=== PATIENT | female | born 1990 | race Caucasian/White ===

== ENCOUNTER 2017-10-30 19:49 | Inpatient (IN) | payer OTHER ==
[~2017-10-30] VITALS: Ht 165.1 cm; Wt 62.5 kg
[~2017-10-30 19:49] MED LIST: FAMOTIDINE; HYDROCODON-ACE1 EAC7 PO; KEFLEX500 MG PO; NORFLEX100 MG PO; PHENERGAN 25 MG25 M1 PO; PRENACARE TABL1 EACH PO; ZOFRAN4 MG PO
[2017-10-30 19:58] VITALS: BP 123/80
[2017-10-30 21:18] LABS: ABSOLUTE EOSINOPHILS 0.2 thou/uL (0.0-0.7); ABSOLUTE LYMPHOCYTES 3.3 thou/uL (0.8-5.3); ABSOLUTE MONOCYTES 0.4 thou/uL (0.0-1.2); ABSOLUTE NEUTROPHILS 4.7 thou/uL (1.6-8.1); BASOPHILS 0.5 %; EOSINOPHILS 2.2 %; HEMATOCRIT 41.6 % (37.0-47.0); LYMPHOCYTES 38.1 %; MCH 29.5 pg (26.0-34.0); MCHC 33.7 g/dL (28.0-37.0); MCV 87.5 fL (80.0-100.0); MPV 8.2 fl. (7.2-11.1); NUCLEATED RBCS 0 /100WBC; PLATELET COUNT* 273 thou/uL (150-400); POLYS 54.2 %; RBC 4.75 mil/uL (4.20-5.00); RDW-CV 12.7 % (10.5-14.5); WBC 8.7 thou/uL (4.0-11.0)
[2017-10-30 21:23] LABS: CALCIUM 8.7 mg/dL (8.5-10.1); CREATININE 0.8 mg/dL (0.6-1.3); POTASSIUM 3.7 mmol/L (3.5-5.1)
[2017-10-30 21:28] LABS: ALBUMIN 3.9 g/dL (3.4-5.0); TOTAL BILIRUBIN 0.4 mg/dL (<0.1-1.0); TOTAL PROTEIN 8.2 g/dL (6.4-8.2)
[2017-10-30 23:11] LABS: URINE BILIRUBIN NEGATIVE (Negative); URINE BLOOD 2+ (Negative); URINE CLARITY CLEAR; URINE COLOR YELLOW; URINE GLUCOSE-RANDOM NEGATIVE (Negative); URINE KETONES NEGATIVE (Negative); URINE LEUKOCYTES-REFLEX NEGATIVE (Negative); URINE NITRITE-REFLEX NEGATIVE (Negative); URINE PROTEIN NEGATIVE (Negative); URINE SPECIFIC GRAVITY 1.025 (1.005-1.030); URINE UROBILINOGEN 0.2 E.U./dl (0.2-1.0)
[2017-10-30 23:16] LABS: SQUAMOUS >10 Many /LPF (0-3)
[2017-10-30 23:17] LABS: BACTERIA-REFLEX 1-9 Few /HPF (None Seen); CASTS None Seen /LPF (None Seen); CRYSTALS None Seen /LPF (None Seen); MUCUS 0-3 Light strn/LPF (None Seen); URINE RBC 3-10 Few /HPF (0-2); URINE WBC-REFLEX 0-5 Rare /HPF (0-5)
[2017-10-30 23:18] LABS: AMP/METHAMP Negative (Negative); BARBITURATES Negative (Negative); BENZODIAZEPINES Negative (Negative); COCAINE Negative (Negative); METHADONE Negative (Negative); OPIATES Negative (Negative); PCP Negative (Negative); THC Negative (Negative)
[2017-10-31] VITALS (8 sets, daily range): BP systolic 76–100; BP diastolic 30–63
--- NOTE | 2017-10-31 15:10 | 2DMMODE ---
[place] [address] 2 D/M-MODE ECHOCARDIOGRAM Name: LILLIAN COLON Room: [address] IN [facility]#: [id number] Admission: 10/30/17 Attend Phys: Juan Luis Molina Discharge: 11/02/17 Date of : 86 Date of Service: 10/31/17 1510 Report #: [id number] THIS REPORT FOR: //name// APPROVED REPORT Study performed: 10/31/2017 10:37:50 EXAM: Comprehensive 2D, Doppler, and color-flow Echocardiogram Patient Location: In-Patient Room #: [place] Status: routine BSA: 1.69 HR: 70 bpm BP: 78/30 mmHg Rhythm: NSR Other Information Study Quality: Good Indications Syncope Seizures 2D Dimensions LVEF(%): 67.76 (>50%) IVSd: 8.98 (7-11mm) LVOT Diam: 20.06 (18-24mm) LVDd: 41.12 mm PWd: 8.63 (7-11mm) Ascending Ao: 31.81 (22-36mm) LVDs: 25.78 (25-40mm) Aortic Root: 29.73 mm Wheatley's LVEF: 67.76 % Volumes Left Atrial Volume (Systole) LA ESV Index: 18.60 mL/m2 Aortic Valve AoV Peak Travis.: 1.01 m/s AO Peak Gr.: 4.12 mmHg LVOT Max P.12 mmHg AO Mean Gr.: 2.26 mmHg LVOT Mean P.81 mmHg LVOT Max V: 1.01 m/s AO V2 VTI: 23.51 cm LVOT Mean V: 0.61 m/s FLORIN (VTI): 3.36 cm2 LVOT V1 VTI: 24.98 [place] [address] 2 D/M-MODE ECHOCARDIOGRAM Name: LILLIAN COLON Room: [address] [place] ..#: [id number] Admission: 10/30/17 Attend Phys: Juan Luis Molina Discharge: 11/02/17 Date of : 86 Date of Service: 10/31/17 1510 Report #: [id number] E/A Ratio: 2.12 MV Decel. Time: 205.12 ms MV E Max Travis.: 0.95 m/s MV PHT: 59.49 ms MVA (PHT): 3.70 cm2 TDI E/Lateral E': 6.79 E/Medial E': 5.59 Medial E' Travis.: 0.17 m/s Lateral E' Travis.: 0.14 m/s Pulmonary Valve PV Peak Travis.: 0.77 m/s PV Peak Gr.: 2.40 mmHg Left Ventricle The left ventricle is normal size. There is normal LV segmental wall motion. There is normal left ventricular wall thickness. Left ventricular systolic function is normal. The left ventricular ejection fraction is within the normal range. LVEF is 55-60%. LVEF is 60%. The left ventricular diastolic function is normal. Right Ventricle The right ventricle is normal size. The right ventricular systolic function is normal. Atria The left atrium size is normal. The right atrium size is normal. Aortic Valve The aortic valve is normal in structure. No aortic regurgitation is present. There is no aortic valvular stenosis. Mitral Valve The mitral valve is normal in structure. There is no mitral valve regurgitation noted. No evidence of mitral valve stenosis. Tricuspid Valve The tricuspid valve is normal in structure. Unable to assess PA pressure. Trace tricuspid regurgitation. Pulmonic Valve The pulmonary valve is normal in structure. There is no pulmonic [place] [address] 2 D/M-MODE ECHOCARDIOGRAM Name: LILLIAN COLON Room: [address] [place] .R.#: [id number] Admission: 10/30/17 Attend Phys: Juan Luis Molina Discharge: 11/02/17 Date of : 86 Date of Service: 10/31/17 1510 Report #: [id number] Great Vessels The aortic root is normal in size. IVC is normal in size and collapses with >50% inspiration Pericardium There is no pericardial effusion. <Conclusion> The left ventricle is normal size. There is normal left ventricular wall thickness. Left ventricular systolic function is normal. The left ventricular ejection fraction is within the normal range. LVEF is 60%. The left ventricular diastolic function is normal. The right ventricle is normal size. The left atrium size is normal. The aortic valve is normal in structure. The mitral valve is normal in structure. The tricuspid valve is normal in structure. IVC is normal in size and collapses with >50% inspiration There is normal LV segmental wall motion. <ELECTRONICALLY SIGNED> By: Collin Montero MD, FACC 10/31/171509 09 09 Collin Montero MD, FACC /INF
[2017-10-31 18:17] LABS: CSF CLARITY CLEAR; CSF COLOR COLORLESS; CSF RBC 5 /mm3; CSF WBC 0 /mm3 (0-10); VOLUME 11 ml
[2017-10-31 18:35] LABS: CSF GLUCOSE 55 mg/dl (40-70); CSF PROTEIN 31.9 mg/dl (15-45)
[2017-11-01 00:41] VITALS: BP 85/51
[2017-11-01 04:27] VITALS: BP 89/50
[2017-11-01 04:54] LABS: HEMATOCRIT 35.6 % (37.0-47.0); HEMOGLOBIN 12.2 gm/dL (12.0-15.0); MCHC 34.4 g/dL (28.0-37.0); MCV 87.2 fL (80.0-100.0); MPV 8.9 fl. (7.2-11.1); RBC 4.09 mil/uL (4.20-5.00); RDW-CV 12.8 % (10.5-14.5)
[2017-11-01 05:22] LABS: CALCIUM 8.1 mg/dL (8.5-10.1); CREATININE 0.8 mg/dL (0.6-1.3); MAGNESIUM 1.8 mg/dL (1.8-2.4); POTASSIUM 4.3 mmol/L (3.5-5.1)
[2017-11-01 08:00] VITALS: BP 91/53
[2017-11-01 13:12] VITALS: BP 94/55
[2017-11-01 16:39] VITALS: BP 77/42
[2017-11-01 20:05] VITALS: BP 99/59
[2017-11-02 00:08] VITALS: BP 100/53
[2017-11-02 04:39] LABS: HEMATOCRIT 36.3 % (37.0-47.0); HEMOGLOBIN 12.3 gm/dL (12.0-15.0); MCH 29.5 pg (26.0-34.0); MCHC 33.9 g/dL (28.0-37.0); MPV 8.3 fl. (7.2-11.1); RBC 4.17 mil/uL (4.20-5.00); RDW-CV 12.6 % (10.5-14.5); WBC 7.5 thou/uL (4.0-11.0)
[2017-11-02 05:01] LABS: CALCIUM 8.2 mg/dL (8.5-10.1); CREATININE 0.6 mg/dL (0.6-1.3); MAGNESIUM 1.8 mg/dL (1.8-2.4); POTASSIUM 4.3 mmol/L (3.5-5.1); TOTAL BILIRUBIN 0.3 mg/dL (<0.1-1.0); TOTAL PROTEIN 5.9 g/dL (6.4-8.2)
[2017-11-02 07:58] VITALS: BP 82/45
== END 2017-11-02 12:37 | disposition left against medical advice (07) | DRG 101 ==
LOC: M.ERS 19:49 → M.TBA-ER 22:46 → M.2W 22:46
PROVIDERS: Family Medicine; Personal Emergency Response Attendant; Psychiatry & Neurology Neurology; ADMIT Internal Medicine
DX: G40.909 Epilepsy, unspecified, not intractable, without status epilepticus (principal); R51 Headache; I95.9 Hypotension, unspecified; R20.2 Paresthesia of skin; J32.0 Chronic maxillary sinusitis; F32.9 Major depressive disorder, single episode, unspecified; F41.0 Panic disorder [episodic paroxysmal anxiety]; F43.9 Reaction to severe stress, unspecified; Z79.899 Other long term (current) drug therapy; Z88.2 Allergy status to sulfonamides; Z88.5 Allergy status to narcotic agent